=== PATIENT | male | born 1960 | race Caucasian/White ===

== ENCOUNTER → 2017-04-01 | Outpatient (CLI) | payer OTHER ==
--- NOTE | 2017-04-01 12:07 | Diagnostic Imaging Report ---
INDICATION: Dizziness. Hypertension. Previous stroke. TECHNIQUE: Routine non contrast-enhanced axial images were obtained from the skull base to the vertex. COMPARISON: 12/03/2007. FINDINGS: The ventricles and cortical sulci are age-appropriate. Since the previous exam, there is been interval development of small lacunar infarct involving the periventricular and deep white matter of the left frontal lobe. This has a chronic appearance. There is no new loss of hong-white matter junction differentiation to suggest acute territorial infarct. There is no new mass effect or midline shift. There is no evidence of intra-or extra-axial intracranial hemorrhage. No extra-axial masses or fluid collections are seen. Bony calvarium is intact. Visualized portions of paranasal sinuses, mastoid air cells are clear. IMPRESSION: 1. No acute intracranial abnormality. No CT evidence acute infarct, mass, or hemorrhage. 2. Old small lacunar infarct of the left frontal lobe. Dictated by: Dictated on workstation # [id number]
[2017-04-01 12:09] LABS: BASOPHILS # (AUTO) 0.1 10^3/uL (0.0-0.1); BASOPHILS % (AUTO) 1 % (0-10); EOSINOPHILS # (AUTO) 0.2 10^3/uL (0.0-0.3); EOSINOPHILS % (AUTO) 1 % (0-10); LYMPHOCYTES # (AUTO) 4.4 X 10^3 (1.0-4.0); LYMPHOCYTES % (AUTO) 35 % (12-44); MEAN CORPUSCULAR HEMOGLOBIN 29 PG (25-34); MEAN CORPUSCULAR HGB CONC 36 G/DL (32-36); MEAN CORPUSCULAR VOLUME 81 FL (80-99); MEAN PLATELET VOLUME 9.9 FL (7.4-10.4); MONOCYTES # (AUTO) 1.1 X 10^3 (0.0-1.0); MONOCYTES % (AUTO) 9 % (0-12); NEUTROPHILS # (AUTO) 6.8 X 10^3 (1.8-7.8); NEUTROPHILS % (AUTO) 54 % (42-75); PLATELET COUNT 270 10^3/uL (130-400); RED BLOOD COUNT 5.99 10^6/uL (4.35-5.85); RED CELL DISTRIBUTION WIDTH 13.8 % (10.0-14.5); WHITE BLOOD COUNT 12.5 10^3/uL (4.3-11.0)
[2017-04-01 12:34] LABS: ALANINE AMINOTRANSFERASE 26 U/L (0-55); ALBUMIN 4.2 GM/DL (3.2-4.5); ANION GAP 11 MMOL/L (5-14); ASPARTATE AMINO TRANSFERASE 19 U/L (5-34); BILIRUBIN,TOTAL 0.4 MG/DL (0.1-1.0); BLOOD UREA NITROGEN 19 MG/DL (7-18); BUN/CREATININE RATIO 18; CALCIUM 10.3 MG/DL (8.5-10.1); CARBON DIOXIDE 25 MMOL/L (21-32); CHLORIDE 105 MMOL/L (98-107); CREATININE SERUM 1.07 MG/DL (0.60-1.30); GFR ESTIMATED > 60; GLUCOSE 104 MG/DL (70-105); POTASSIUM 3.8 MMOL/L (3.6-5.0); SODIUM 141 MMOL/L (135-145); TOTAL PROTEIN 7.8 GM/DL (6.4-8.2)
== END ==
LOC: RAD 11:24
PROVIDERS: ATTEND Nurse Practitioner Family
DX: Z86.73 Personal history of transient ischemic attack (TIA), and cerebral infarction without residual deficits (principal); I10 Essential (primary) hypertension; R42 Dizziness and giddiness
CPT/HCPCS: 36415; 70450; 80053; 85025

== ENCOUNTER 2022-09-30 14:39 | Observation (INO) | payer SELFPAY ==
[~2022-09-30] VITALS: Ht 180 cm; Wt 95.2 kg
[2022-09-30] MEDS ORDERED: ADENOSINE 6 MG/2 ML (ADENOCARD) VIAL IV ONE (14:56)
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
[2022-09-30] MEDS ORDERED: dilTIAZem DRIP PRE-MIX 125 ML IV SCH ×2 (15:15→17:45)
[2022-09-30 15:19] LABS: ALBUMIN 3.9 GM/DL (3.2-4.5); BASOPHILS # (AUTO) 0.1 10^3/uL (0.0-0.1); BASOPHILS % (AUTO) 1 % (0-10); EOSINOPHILS # (AUTO) 0.1 10^3/uL (0.0-0.3); EOSINOPHILS % (AUTO) 1 % (0-10); HEMATOCRIT 42 % (40-54); HEMOGLOBIN 15.1 g/dL (13.3-17.7); LYMPHOCYTES # (AUTO) 3.5 10^3/uL (1.0-4.0); LYMPHOCYTES % (AUTO) 30 % (12-44); MEAN CORPUSCULAR HEMOGLOBIN 30 pg (25-34); MEAN CORPUSCULAR HGB CONC 36 g/dL (32-36); MEAN CORPUSCULAR VOLUME 82 fL (80-99); MEAN PLATELET VOLUME 9.9 fL (9.0-12.2); MONOCYTES # (AUTO) 0.7 10^3/uL (0.0-1.0); MONOCYTES % (AUTO) 6 % (0-12); NEUTROPHILS # (AUTO) 7.1 10^3/uL (1.8-7.8); NEUTROPHILS % (AUTO) 62 % (42-75); PLATELET COUNT 285 10^3/uL (130-400); WHITE BLOOD COUNT 11.5 10^3/uL (4.3-11.0)
[2022-09-30 15:20] LABS: POTASSIUM 3.9 MMOL/L (3.6-5.0)
[2022-09-30 15:21] LABS: CALCIUM 9.1 MG/DL (8.5-10.1)
[2022-09-30 15:22] LABS: TOTAL PROTEIN 7.1 GM/DL (6.4-8.2)
[2022-09-30 15:24] LABS: BILIRUBIN,TOTAL 0.5 MG/DL (0.1-1.0)
[2022-09-30 15:25] LABS: PROTHROMBIN TIME PATIENT 13.7 SEC (12.2-14.7)
[2022-09-30 15:26] LABS: CREATININE SERUM 1.17 MG/DL (0.60-1.30)
[2022-09-30 15:28] LABS: MAGNESIUM 1.7 MG/DL (1.6-2.4)
--- NOTE | 2022-09-30 15:42 | Diagnostic Imaging Report ---
CLINICAL INDICATION: Patient with chest pain. EXAM: Portable chest x-ray, upright view. COMPARISON: None. FINDINGS: Lungs/pleura: Lungs are clear. There is no pneumothorax. There is no pleural effusion. Mediastinum: Unremarkable. Pulmonary vasculature: Unremarkable. Heart: Unremarkable. Bones/extrathoracic soft tissue: Unremarkable. IMPRESSION: There is no radiographic evidence of acute cardiopulmonary process. Dictated by: Dictated on workstation # [id number]
[2022-09-30] MEDS ORDERED: RT-ALBUINH INH (15:49)
[2022-09-30] MEDS ORDERED: ATOR40TA70 PO (15:49)
[2022-09-30] MEDS ORDERED: LISI1TAB44 PO (15:49)
[2022-09-30] MEDS ORDERED: ASPIRIN 81 MG CHEW (CHILDREN'S ASA) PO ONE (16:00)
[2022-09-30] MEDS ORDERED: ENOXAPARIN 100 MG/1 ML (LOVENOX) SYR SC ONE (16:00)
[2022-09-30] MEDS ORDERED: DIGOXIN 0.25 MG/ML (LANOXIN) 2 ML AMP ONE (16:55)
--- NOTE | 2022-09-30 16:58 | Consultation-Cardiology ---
HPI-Cardiology Cardiology Consultation Date of Consultation 09/30/22 Date of Admission Time Seen by Provider: 16:54 Indication: Atrial flutter HPI 62-year-old gentleman with history of multiple CVA, migraine headache. Was noted during visit to his primary care physician to be tachycardic, has been having generalized weakness, has residual weakness on his left side. Denied any palpitation, no chest pain, complaining of fatigue and loss of energy. Given to the emergency room and noted to be in atrial flutter with rapid ventricular response. He is on Cardizem drip and still tachycardic. Home Medications & Allergies Allergies: Coded Allergies: codeine (Verified Allergy, Unknown, 11/30/07) Home Medication List Reviewed: Yes GNR-Dyfoef-Ycwith Hx Patient Social History Smoking Status: Current Everyday Smoker Have you traveled recently?: No Alcohol Use?: No Past Medical History Discussed below Family Medical History Significant Family History: No Pertinent Family Hx Review of Systems-General Review of Systems Constitutional: see HPI, malaise, weakness EENTM: see HPI, no symptoms reported Respiratory: no symptoms reported, see HPI Cardiovascular: see HPI Gastrointestinal: no symptoms reported, see HPI Genitourinary: no symptoms reported, see HPI Musculoskeletal: no symptoms reported Skin: no symptoms reported Psychiatric/Neurological: No Symptoms Reported, See HPI All Other Systems Reviewed Negative Unless Noted: Yes Reviewed Test Results Reviewed Test Results Lab Laboratory Tests Test 09/30/22 14:58 Range/Units White Blood Count 11.5 H 4.3-11.0 10^3/uL Red Blood Count 5.10 4.30-5.52 10^6/uL Hemoglobin 15.1 13.3-17.7 g/dL Hematocrit 42 40-54 % Mean Corpuscular Volume 82 80-99 fL Mean Corpuscular Hemoglobin 30 25-34 pg Mean Corpuscular Hemoglobin Concent 36 32-36 g/dL Red Cell Distribution Width 13.0 10.0-14.5 % Platelet Count 285 130-400 10^3/uL Mean Platelet Volume 9.9 9.0-12.2 fL Immature Granulocyte % (Auto) 0 % Neutrophils (%) (Auto) 62 42-75 % Lymphocytes (%) (Auto) 30 12-44 % Monocytes (%) (Auto) 6 0-12 % Eosinophils (%) (Auto) 1 0-10 % Basophils (%) (Auto) 1 0-10 % Neutrophils # (Auto) 7.1 1.8-7.8 10^3/uL Lymphocytes # (Auto) 3.5 1.0-4.0 10^3/uL Monocytes # (Auto) 0.7 0.0-1.0 10^3/uL Eosinophils # (Auto) 0.1 0.0-0.3 10^3/uL Basophils # (Auto) 0.1 0.0-0.1 10^3/uL Immature Granulocyte # (Auto) 0.1 0.0-0.1 10^3/uL Prothrombin Time 13.7 12.2-14.7 SEC INR Comment 1.0 0.8-1.4 Activated Partial Thromboplast Time 30 24-35 SEC Sodium Level 140 135-145 MMOL/L Potassium Level 3.9 3.6-5.0 MMOL/L Chloride Level 108 H 98-107 MMOL/L Carbon Dioxide Level 19 L 21-32 MMOL/L Anion Gap 13 5-14 MMOL/L Blood Urea Nitrogen 17 7-18 MG/DL Creatinine 1.17 0.60-1.30 MG/DL Estimat Glomerular Filtration Rate 70 BUN/Creatinine Ratio 15 Glucose Level 204 H 70-105 MG/DL Calcium Level 9.1 8.5-10.1 MG/DL Corrected Calcium 9.2 8.5-10.1 MG/DL Magnesium Level 1.7 1.6-2.4 MG/DL Total Bilirubin 0.5 0.1-1.0 MG/DL Aspartate Amino Transf (AST/SGOT) 21 5-34 U/L Alanine Aminotransferase (ALT/SGPT) 25 0-55 U/L Alkaline Phosphatase 62 40-136 U/L Troponin I 0.719 *H <0.028 NG/ML Total Protein 7.1 6.4-8.2 GM/DL Albumin 3.9 3.2-4.5 GM/DL Physical Exam Physical Exam Vital Signs Vital Signs - First Documented 09/30/22 14:50 Pulse 177 Resp 30 B/P (MAP) 143/91 (108) Pulse Ox 96 O2 Delivery Room Air Capillary Refill : Less Than 3 Seconds Height, Weight, BMI Height: '71.00" Weight: 190lbs. oz. 86.131351yz; BMI Method: General Appearance: WD/WN, Anxious HEENT: PERRL/EOMI Neck: Normal Inspection Respiratory: Normal Breath Sounds, No Accessory Muscle Use, No Respiratory Distress Cardiovascular: Normal Peripheral Pulses, Irregularly Irregular, Tachycardia (170) Gastrointestinal: Non Tender, Soft Extremity: Normal Inspection, Normal Range of Motion, Non Tender, No Pedal Edema Neurologic/Psychiatric: Alert, Oriented x3, No Motor/Sensory Deficits, Other (upset, frustrated) Skin: Normal Color, Diaphoresis (clammy) A/P-Cardiology Admission Diagnosis Atrial flutter CVA Hypertension Tobaccoism Assessment/Plan Atrial flutter with rapid ventricular response. Started on Cardizem drip, adding metoprolol and digoxin I am planning to evaluate EUGENIE and possible cardioversion in the morning if he did not convert on his own. CHADVASC score 4, started on Lovenox 100 mg We will start Eliquis 5 mg twice daily History of multiple CVA reporting a total of 5 strokes, still have residual weak ness History of migraine headache Labile hypertension, started on metoprolol and Cardizem Was on lisinopril as an outpatient Questionable hyperlipidemia I will evaluate lipid profile Tobaccoism, educated on smoking cessation Clinical Quality Measures AMI/AHF: ASA po Prior to arrival: GURWINDER Valdez MD Sep 30, 2022 16:58
[2022-09-30] MEDS ORDERED: DIGOXIN 0.25 MG/ML (LANOXIN) 2 ML AMP IV ONE (17:00)
[2022-09-30] MEDS ORDERED: DIGOXIN 0.25 MG/ML (LANOXIN) 2 ML AMP IV NR (17:00)
[2022-09-30] MEDS ORDERED: MELATONIN 3 MG TABLET PO PRN (17:45)
[2022-09-30] MEDS ORDERED: CALCIUM CARBONATE 500 MG (TUMS) TAB.CHEW PO PRN (17:45)
[2022-09-30] MEDS ORDERED: diphenhydrAMINE 25 MG TAB (BENADRYL) PO PRN (17:45)
[2022-09-30] MEDS ORDERED: ONDANSETRON 4 MG/2 ML (SDV) Z0FRAN IV PRN (17:45)
[2022-09-30] MEDS ORDERED: HYDROmorphone 2 MG/ML VIAL (DILAUDID) IV PRN (17:45)
[2022-09-30] MEDS ORDERED: diphenhydrAMINE 50 MG/ML INJ (BENADRYL) IVP PRN (17:45)
[2022-09-30] MEDS ORDERED: BISACODYL 10 MG SUPP (DULCOLAX) PR PRN (17:45)
[2022-09-30] MEDS ORDERED: polyethylene glycoL POWDER 17 GM (MIRALAX) PACK PO PRN (17:45)
[2022-09-30] MEDS ORDERED: NS IV 500 ML 500 ML IV PRN (17:45)
[2022-09-30] MEDS ORDERED: ANTACID SUSP 30 ML UDC (MYLANTA) PO PRN (17:45)
[2022-09-30] MEDS ORDERED: LACTULOSE SYRUP 10GM/15ML (ENULOSE) 30ML UDC PO PRN (17:45)
[2022-09-30] MEDS ORDERED: ENOXAPARIN 100 MG/1 ML (LOVENOX) SYR SC SCH (17:45)
[2022-09-30] MEDS ORDERED: ONDANSETRON 4 MG (ZOFRAN) ORAL DISSOLVE TAB PO PRN (17:45)
[2022-09-30] MEDS ORDERED: MILK OF MAGNESIA 400 MG/5 ML 30 ML UDC PO PRN (17:45)
[2022-09-30 17:48] LABS: AMPHETAMINE SCREEN, URINE NEGATIVE (NEGATIVE); BARBITURATE SCREEN URINE NEGATIVE (NEGATIVE); BENZODIAZEPINES SCREEN URINE NEGATIVE (NEGATIVE); CANNABINOID SCREEN, URINE NEGATIVE (NEGATIVE); COCAINE SCREEN URINE NEGATIVE (NEGATIVE); METHADONE STAT NEGATIVE (NEGATIVE); OPIATE SCREEN URINE NEGATIVE (NEGATIVE); OXYCODONE STAT NEGATIVE (NEGATIVE); PROPOXYPHENE STAT NEGATIVE (NEGATIVE); TRICYCLIC ANTIDEPRESSANTS SCRE NEGATIVE (NEGATIVE)
[2022-09-30 17:50] VITALS: BP 143/91
[2022-09-30] MEDS ORDERED: BENZONATATE 100 MG (TESSALON) CAPSULE PO PRN (18:00)
--- NOTE | 2022-09-30 18:00 | History & Physical-Hospitalist ---
History of Present Illness HPI/Chief Complaint CC: Atrial flutter HPI: This is a 62yoWM clinic patient of [facility] who has a h/o chronic cough who presented to the ER with palpitations and was found to have atrial flutter with RVR. He denies any h/o cardiac dysfunction. Smoking cessation was counseled. Cough syrup was requested for cough that has been present tor "years." Source: patient, RN/MD Exam Limitations: no limitations Date Seen 09/30/22 Time Seen by a Provider: 18:00 Attending Physician Olman Lisa MD PCP Admitting Physician: Yaa Borden DO Attending Physician: Yaa Borden DO Referring Physician Date of Admission Sep 30, 2022 at 17:17 Home Medications & Allergies Home Medications Reviewed patient Home Medication Reconciliation performed by pharmacy medication reconciliations validation technician and/or nursing. Patients Allergies have been reviewed. Allergies Allergies Coded Allergies codeine (Verified Allergy, Unknown, 11/30/07) Past Mjlmyrz-Mestob-Sixuji Hx Patient Social History Marrital Status: single Employed/Student: unemployed Tobacco Use?: Yes Tobacco type used: Cigarettes Smoking Status: Current Everyday Smoker Use of E-Cig and/or Vaping dev: No Substance use?: No Alcohol Use?: No Pt feels they are or have been: No Immunizations Up To Date Tetanus Booster (TDap): Less Than 5 Years Current Status Advance Directives: No Primary Language: Mosotho Preferred Spoken Language: Mosotho Family Medical History No Pertinent Family Hx Review of Systems Constitutional: see HPI Cardiovascular: palpitations Physical Exam Physical Exam Vital Signs Vital Signs - First Documented 09/30/22 09/30/22 09/30/22 09/30/22 14:50 15:20 17:20 17:50 Temp 36.9 Pulse 177 Resp 30 B/P (MAP) 143/91 (108) Pulse Ox 96 O2 Delivery Room Air O2 Flow Rate 2.00 FiO2 21 Capillary Refill : Less Than 3 Seconds Height, Weight, BMI Height: '71.00" Weight: 190lbs. oz. 86.709628qy; BMI Method: General Appearance: Anxious, Chronically ill, Mild Distress Eyes: Right Eye Normal Inspection, Right Eye PERRL HEENT: PERRL/EOMI, Normal ENT Inspection, Pharynx Normal, Moist Mucous Membranes Neck: Full Range of Motion, Normal Inspection, Non Tender Respiratory: Chest Non Tender, Lungs Clear, Normal Breath Sounds, No Accessory Muscle Use, No Respiratory Distress Cardiovascular: No Edema, No Gallop, No JVD, No Murmur, Normal Peripheral Pulses, Irregularly Irregular, Tachycardia Gastrointestinal: Normal Bowel Sounds, No Organomegaly, No Pulsatile Mass, Non Tender, Soft Back: Normal Inspection, No CVA Tenderness, No Vertebral Tenderness Extremity: Normal Capillary Refill, Normal Inspection, Normal Range of Motion, Non Tender, No Calf Tenderness, No Pedal Edema Neurologic/Psychiatric: Alert, Oriented x3, No Motor/Sensory Deficits, Normal Mood/Affect Skin: Normal Color, Warm/Dry Lymphatic: No Adenopathy Results Results/Procedures Labs Laboratory Tests 09/30/22 14:58 Patient resulted labs reviewed. Assessment/Plan Admission Diagnosis Assessment: Atrial flutter Elevated troponin Chronic cough Smoker Anxiety Hyperglycemia Plan: Cardizem drip Admission Status: Observation Diagnosis/Problems Diagnosis/Problems (1) Atrial flutter with rapid ventricular response Status: Acute Clinical Quality Measures AMI/AHF: ASA po Prior to arrival: YAA Knapp DO Sep 30, 2022 17:59
[2022-09-30] MEDS ORDERED: RT-ALBUTEROL SULF 2.5 MG/3 ML PRE-MIX VIAL INH PRN (18:15)
[2022-09-30] MEDS: guaiFENesin/DM (ROBITUSSIN DM) 10 ML UDC PO PRN (20:01)
[2022-09-30] MEDS: ACETAMINOPHEN 325 MG TABLET PO PRN (20:01)
[2022-09-30] MEDS: meTOprolol TARTRATE 25 MG (LOPRESSOR) TABLET PO SCH (20:02)
[2022-09-30] MEDS: RT-ALBUTEROL SULF 2.5 MG/3 ML PRE-MIX VIAL INH SCH (20:57)
[2022-09-30] MEDS: DOCUSATE SODIUM 100 MG (COLACE) CAP PO SCH (21:00)
[2022-09-30] MEDS: SENNOSIDES 8.6 MG (SENOKOT) TAB PO SCH (21:00)
[2022-10-01] MEDS: guaiFENesin/DM (ROBITUSSIN DM) 10 ML UDC PO PRN (04:49)
[2022-10-01] MEDS: ACETAMINOPHEN 325 MG TABLET PO PRN (04:49)
[2022-10-01] MEDS ORDERED: ENOXAPARIN 100 MG/1 ML (LOVENOX) SYR SC SCH (05:00)
[2022-10-01] MEDS ORDERED: MAGNESIUM 1 GM/100 ML IVPB 100 ML IV SCH (06:00)
[2022-10-01] MEDS ORDERED: POTASSIUM CL 10MEQ/50ML IVPB 50 ML IV SCH (06:00)
[2022-10-01] MEDS ORDERED: KCL 20 MEQ TAB (K-DUR) PO SCH (06:00)
[2022-10-01 06:10] LABS: BASOPHILS # (AUTO) 0.1 10^3/uL (0.0-0.1); BASOPHILS % (AUTO) 1 % (0-10); EOSINOPHILS # (AUTO) 0.1 10^3/uL (0.0-0.3); EOSINOPHILS % (AUTO) 1 % (0-10); HEMATOCRIT 40 % (40-54); HEMOGLOBIN 13.8 g/dL (13.3-17.7); LYMPHOCYTES # (AUTO) 3.8 10^3/uL (1.0-4.0); LYMPHOCYTES % (AUTO) 36 % (12-44); MEAN CORPUSCULAR HEMOGLOBIN 29 pg (25-34); MEAN CORPUSCULAR HGB CONC 35 g/dL (32-36); MEAN CORPUSCULAR VOLUME 84 fL (80-99); MEAN PLATELET VOLUME 10.6 fL (9.0-12.2); MONOCYTES # (AUTO) 0.9 10^3/uL (0.0-1.0); MONOCYTES % (AUTO) 9 % (0-12); NEUTROPHILS # (AUTO) 5.6 10^3/uL (1.8-7.8); NEUTROPHILS % (AUTO) 53 % (42-75); PLATELET COUNT 251 10^3/uL (130-400); WHITE BLOOD COUNT 10.5 10^3/uL (4.3-11.0)
[2022-10-01 06:30] LABS: ALBUMIN 3.6 GM/DL (3.2-4.5); BILIRUBIN,TOTAL 0.4 MG/DL (0.1-1.0); CALCIUM 8.8 MG/DL (8.5-10.1); CREATININE SERUM 1.19 MG/DL (0.60-1.30); MAGNESIUM 1.9 MG/DL (1.6-2.4); PHOSPHORUS 4.2 MG/DL (2.3-4.7); TOTAL PROTEIN 6.4 GM/DL (6.4-8.2)
[2022-10-01 06:31] LABS: CHOLESTEROL 97 MG/DL (< 200); HDL CHOLESTEROL 24 MG/DL (40-60); TRIGLYCERIDES 88 MG/DL (<150); VLDL CHOLESTEROL 18 MG/DL (5-40)
[2022-10-01] MEDS: RT-ALBUTEROL SULF 2.5 MG/3 ML PRE-MIX VIAL INH SCH (06:37)
[2022-10-01] MEDS: MAGNESIUM 1 GM/100 ML IVPB 100 ML IV SCH ×2 (07:03→08:44)
[2022-10-01] MEDS ORDERED: METO-333 PO (08:32)
[2022-10-01] MEDS ORDERED: ASPI-1238 PO (08:32)
[2022-10-01] MEDS ORDERED: RIVA20TA PO (08:32)
[2022-10-01] MEDS ORDERED: DILT120C82 PO (08:35)
--- NOTE | 2022-10-01 08:35 | Cardiology Progress Note ---
Subjective Date Seen by Provider: Oct 01, 2022 Time Seen by Provider: 08:33 Subjective/Events-last exam Patient is laying down in bed, feeling better, requesting to go home Review of Systems General: No Chills, No Night Sweats, No Fatigue, No Malaise, No Appetite, No Other HEENT: No Head Aches, No Visual Changes, No Eye Pain, No Ear Pain, No Dysphasia, No Sinus Congestion, No Post Nasal Drip, No Sore Throat, No Other Pulmonary: No Dyspnea, No Cough, No Pleuritic Chest Pain, No Other Objective-Cardiology Exam Last Set of Vital Signs Vital Signs 09/30/22 10/01/22 10/01/22 10/01/22 10/01/22 10/01/22 17:50 03:00 06:00 06:38 07:21 07:58 Temp 36.5 Pulse 65 Resp 19 B/P (MAP) 144/69 (94) Pulse Ox 97 O2 Delivery Room Air O2 Flow Rate 2.00 FiO2 21 I&O Intake and Output 10/01/22 00:00 Intake Total 400 ml Balance 400 ml Intake Oral 400 ml # Voids 2 Daily Weight Change No General: Alert, Oriented X3, Cooperative HEENT: Atraumatic, PERRLA Neck: Supple, No JVD, No Thyromegaly Lungs: Clear to Auscultation, Normal Air Movement Heart: Regular Rate, Normal S1, Normal S2, No Murmurs Abdomen: Normal Bowel Sounds, Soft, No Tenderness, No Hepatosplenomegaly, No Masses Extremities: No Clubbing, No Cyanosis, No Edema, Normal Pulses, No Tenderness/Swelling Skin: No Rashes, No Breakdown, No Significant Lesion Neuro: Normal Gait, Normal Speech, Strength at 5/5 X4 Ext, Normal Tone, Sensation Intact Psych/Mental Status: Mental Status NL, Mood NL Results Lab Laboratory Tests 09/30/22 14:58 10/01/22 04:32 A/P-Cardiology Admission Diagnosis Atrial flutter CVA Hypertension Tobaccoism Assessment/Plan Paroxysmal atrial flutter with rapid ventricular response. Converted to sinus rhythm on Cardizem and digoxin Started on Xarelto and aspirin and metoprolol 25 twice daily and Cardizem CHADVASC score 4, started on Lovenox 100 mg Started on Xarelto Non-ST elevation myocardial infarction, elevated troponin level. Probably secondary to tachycardia Underlying coronary artery disease cannot be excluded, we discussed with the patient the possibility of cardiac cath versus doing stress test as an outpatient in a week Patient is requesting to go home and he will come to the office and have a stress test scheduled as an outpatient History of multiple CVA reporting a total of 5 strokes, still have residual weakness History of migraine headache Labile hypertension, started on metoprolol and Cardizem Was on lisinopril as an outpatient Questionable hyperlipidemia I will evaluate lipid profile Tobaccoism, educated on smoking cessation GURWINDER COLE MD Oct 01, 2022 08:35
[2022-10-01] MEDS: meTOprolol TARTRATE 25 MG (LOPRESSOR) TABLET PO SCH (08:44)
[2022-10-01] MEDS ORDERED: DIGOXIN 0.25 MG (LANOXIN) TAB PO SCH (09:00)
[2022-10-01] MEDS ORDERED: PANTOPRAZOLE 40 MG (PROTONIX) TAB PO SCH (09:00)
[2022-10-01] MEDS ORDERED: ASPIRIN E.C. 81 MG (ECOTRIN) TAB PO SCH ×2 (09:00)
--- NOTE | 2022-10-01 09:02 | Diagnostic Imaging Report ---
EXAMINATION: Chest 1 view HISTORY: Chest pain COMPARISON: 09/30/2022 FINDINGS: There is mild edema. No pneumonia. No pleural effusion or pneumothorax. Heart size is normal. IMPRESSION: 1. Mild edema. Dictated by: Dictated on workstation # [id number]
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
[2022-10-01] MEDS: SENNOSIDES 8.6 MG (SENOKOT) TAB PO SCH (09:44)
[2022-10-01] MEDS: DOCUSATE SODIUM 100 MG (COLACE) CAP PO SCH (09:44)
[2022-10-01 10:53] VITALS: BP 173/74
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
== END 2022-10-01 09:12 | disposition home or self-care (01) ==
LOC: EDUNIT# 14:39 → ER 14:42 → ICU 17:17 → INTOOBSV 17:17 → UNDOADMOB 17:17 → ICU 17:54 → UNDODISOB 10-01 09:12
PROVIDERS: ADMIT Internal Medicine; ATTEND Internal Medicine
DX: I48.92 Unspecified atrial flutter (principal); R77.8 Other specified abnormalities of plasma proteins; R05.3 Chronic cough; R73.9 Hyperglycemia, unspecified; I10 Essential (primary) hypertension; I63.9 Cerebral infarction, unspecified; G43.909 Migraine, unspecified, not intractable, without status migrainosus; F41.9 Anxiety disorder, unspecified; F17.210 Nicotine dependence, cigarettes, uncomplicated; Z79.899 Other long term (current) drug therapy; Z86.73 Personal history of transient ischemic attack (TIA), and cerebral infarction without residual deficits
CPT/HCPCS: 71045 ×2; 80053 ×2; 80061; 80306; 82947; 83036; 83735 ×2; 84100; 84443; 84484 ×2; 85025 ×2; 85610; 85730; 87081; 93005 ×2; 93041; 94640 ×2; 96372; 96375; 96376; 99284; C8929; G0378; 36415; 93306